=== PATIENT | male | born 1960 | race Caucasian/White ===

== ENCOUNTER 2019-07-31 18:41 | Emergency (ER) | payer BC ==
--- NOTE | 2019-07-31 19:27 | RAD ---
EXAM: Chest,1 View CLINICAL INDICATION: Chest tightness COMPARISON: There is no previous study for comparison. FINDINGS: A single view of the chest was obtained. The heart size is normal. The pulmonary vascularity is unremarkable. The lungs are clear. There is no consolidation, infiltrate, pleural effusion, or pneumothorax. IMPRESSION: No evidence of active pulmonary disease. Electronically signed by: Ray Kim MD 07/31/2019 7:25 PM [facility]
--- NOTE | 2019-07-31 20:47 | ED.PDOC ---
History of Present Illness - General Chief Complaint: General Stated Complaint: body aches, headache, vomiting Time Seen by Provider: 07/31/19 20:45 Source: patient, RN notes reviewed, Vital Signs reviewed, family - Son's Exam Limitations: no limitations - History of Present Illness Initial Comments: patient presents after 24 hours headache, nausea, vomiting, cough and Body a ches. Patient presents after having been seen at the today and diagnosed with a bronchial infection and started on antibiotics. patient presented because they were feeling worse. Timing/Duration: 24 hours Severity: moderate Improving Factors: nothing Worsening Factors: nothing Associated Symptoms: cough, headaches, malaise, nausea/vomiting, shortness of breath Allergies/Adverse Reactions: Allergies NO KNOWN ALLERGY Allergy (Verified 07/31/19 18:59) Home Medications: Ambulatory Orders Oseltamivir Capsule [Tamiflu] 75 mg PO BID 5 Days #10 capsule 07/31/19 Review of Systems - Review of Systems Constitutional: States: chills, fever, malaise EENTM: States: nose congestion Respiratory: States: cough, short of breath Cardiology: States: no symptoms reported Gastrointestinal/Abdominal: States: nausea, vomiting Musculoskeletal: States: no symptoms reported Skin: States: no symptoms reported Neurological: States: headache, weakness - generalized Endocrine: States: no symptoms reported Hematologic/Lymphatic: States: no symptoms reported All other Systems: Reviewed and Negative Past Medical History (General) - Patient Medical History Hx Asthma: Yes Surgical History: other - Vaccination History Hx Tetanus, Diphtheria Vaccination: Yes Hx Influenza Vaccination: No Hx Pneumococcal Vaccination: No - Social History Hx Tobacco Use: No Hx Alcohol Use: Yes - occ Family Medical History - Family History Father Living Status: Hx Family Hypertension: Yes Hx Family;Other: parkinsons Physical Exam - Physical Exam General Appearance: Alert, Anxious, Obvious distress, Well Developed, Well Groomed, Well Hydrated, Well Nourished Eye Exam: bilateral normal, bilateral abnormal EOM Ears, Nose, Throat: hearing grossly normal, normal ENT inspection, normal pharynx Neck: non-tender, full range of motion, supple, normal inspection Respiratory: chest non-tender, lungs clear, normal breath sounds, no respiratory distress, no accessory muscle use Cardiovascular/Chest: normal peripheral pulses, regular rate, rhythm, no edema, no gallop, no murmur Peripheral Pulses: radial,right: 2+, radial,left: 2+ Gastrointestinal/Abdominal: normal bowel sounds, non tender, soft, no organomegaly, no pulsatile mass Back Exam: normal inspection, no CVA tenderness, no vertebral tenderness Extremity: normal range of motion, non-tender, normal inspection, no pedal edema 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 Plan discharge home with a prescription. - Results/Orders Results/Orders: patient has a positive flu B. chest x-ray negative for pneumonia Departure - Departure Clinical Impression: Influenza B Time of Disposition: 20:54 Disposition: Discharge to Home or Self Care Condition: Good Departure Forms: ED Discharge - Pt. Copy, Patient Portal Self Enrollment Instructions: Flu, Adult (DC) Prescriptions: Oseltamivir Capsule [Tamiflu] 75 mg PO BID 5 Days #10 capsule Home Medications: Ambulatory Orders Oseltamivir Capsule [Tamiflu] 75 mg PO BID 5 Days #10 capsule 07/31/19
[2019-07-31] MEDS: OSELTAMIVIR 75 MG CAP PO ONE (21:04)
[2019-07-31 21:08] VITALS: BP 114/74; TEMP 99.8; O2SAT 95
== END 2019-07-31 21:06 | disposition home or self-care (01) ==
LOC: ER 18:41
DX: J10.01 Influenza due to other identified influenza virus with the same other identified influenza virus pneumonia (principal); J45.909 Unspecified asthma, uncomplicated